=== PATIENT | male | born 1970 | race Caucasian/White ===

== ENCOUNTER 2020-05-20 11:36 | Emergency (ER) | payer OTHER, SELFPAY ==
[2020-05-20 12:31] VITALS: BP 119/73; PULSE 93; RESP 14; TEMP 37.2; O2SAT 98
--- NOTE | 2020-05-20 12:50 | ED.SKABFB ---
HPI - Skin/Abscess/Foreign Bdy General Chief complaint: Skin/Abscess/Foreign Body Stated complaint: infected axilla Time Seen by Provider: 05/20/20 12:01 History of Present Illness HPI narrative: Painful swelling in the right axilla for several days. Saw PCP yesterday and was given a shot of ceftriaxone and started on bactrim. Worse today. No fever, nausea, weakness. Related Data Home Medications Medication Instructions Recorded Confirmed sulfamethoxazole-trimethoprim 1 tablet PO Q12H 05/20/20 [Bactrim DS] Allergies Allergy/AdvReac Type Severity Reaction Status Date / Time No Known Allergies Allergy Verified 05/20/20 12:35 Review of Systems Review of Systems: All systems reviewed & are unremarkable except as noted in HPI and below Constitutional: Constitutional: Denies fever(s) and Denies weakness Cardiovascular: Cardiovascular: Denies chest pain Respiratory: Respiratory: Denies dyspnea Gastrointestinal: Gastrointestinal: Denies nausea PMFSH Social History Social History Gender identity (if verbalized by the patient): Male Exam Const: General: healthy appearing, no acute distress and alert Orientation/consciousness: patient oriented x3 HENMT: Head: normal to inspection Neck: Neck: normal visual inspection and no lymphadenopathy Chest: Chest palpation & inspection: tenderness pectoral muscle on the right Resp: Effort & Inspection: normal respiratory effort Auscultation: clear to auscultation bilaterally, no rales, no rhonchi and no wheezes Cardio: Jugular venous distension: no JVD Rate: regular rate Rhythm: regular rhythm Heart sounds: no murmurs GI: Inspection: non-distended GI Palp: Yes Soft to palpation and No Tenderness to palpation present (GI) Skin: Other: Large right axillary abscess extending into right pectoral region Neuro: General: patient oriented x3 and moves all extremities Speech: normal speech Extrem: General: no edema Psych: Appearance: well kempt Affect: normal affect Course Vital Signs Vital signs: Vital Signs Temperature 37.2 C 05/20/20 12:31 Pulse Rate 93 05/20/20 12:31 Respiratory Rate 14 05/20/20 12:31 Blood Pressure 119/73 05/20/20 12:31 Pulse Oximetry 98 05/20/20 12:31 Temperature 36.6 C 08/28/20 14:21 Pulse Rate 81 05/20/20 14:21 Respiratory Rate 20 05/20/20 14:21 Blood Pressure 119/75 05/20/20 14:21 Pulse Oximetry 97 05/20/20 14:21 Procedures Abscess I/D other: Side (if applicable): right (axilla) Local Anesthetic: lidocaine 1% and with epi Amount of anesthesia used (mL): 30 Technique: incised with #11 blade Amount of fluid expressed (mL): 20 Irrigation: Yes Packing used?: iodoform I&D Results: Pus Complications: pain MDM - Skin/Abscess/Foreign Bdy MDM Narrative Medical decision making narrative: Abscess drained and packed. Will have him continue bactrim Medical Records Attestation: I reviewed the patient's medical records. Discharge Plan Discharge Clinical Impression: Abscess of axilla, right Patient Disposition: Home, Self-Care Condition: Stable Instructions: Antibiotic Form, Abscess (ED) Additional Instructions: Continue antibiotics Prescriptions: New sulfamethoxazole-trimethoprim [Bactrim DS] 800-160 mg tablet 1 tablet PO Q12H Qty: 20 RF: 0 No Action sulfamethoxazole-trimethoprim [Bactrim DS] 800-160 mg Tablet 1 tablet PO Q12H RF: 0 Follow-up/Referrals: PHYSICIAN,SENIOR ACCOUNTING MANAGER [Primary Care Provider] - Discharge Date/Time: 05/20/20 14:23
[2020-05-20] MEDS: KETOROLAC (*BKC) 60 MG/2 ML VIAL IM (13:00)
--- NOTE | 2020-05-20 14:03 | PC.NURSE ---
Patient pharmacy was called to verify which antibiotic the patient has been prescribed. This was updated under home medications. Additionally his PMD office was contacted and reports that he was given 500mg rocephin IM while in the office on 05/19/2020. EDP updated.
[2020-05-20 14:21] VITALS: BP 119/75; PULSE 81; RESP 20; TEMP 36.6; O2SAT 97
== END 2020-05-20 14:23 | disposition home or self-care (01) ==
PROVIDERS: Emergency Provider Emergency Medicine
DX: L02.411 Cutaneous abscess of right axilla (principal)
CPT/HCPCS: 10061; 96372; 99283; J1885

== ENCOUNTER 2022-05-30 15:14 | Emergency (ER) | payer BC, SELFPAY ==
--- NOTE | ~2022-05-30 | CT_ITS ---
EXAMINATION: CT abdomen pelvis w con DATE: 05/30/2022 18:15 INDICATION: GI bleed TECHNIQUE: Computed tomography (CT) of the abdomen and pelvis was performed with 100 mL Omnipaque-350 intravenous contrast. Automated exposure control and iterative reconstruction technique were employe d. The dose-length product was 1698.22 mGy-cm. COMPARISON: None. FINDINGS: Lower thorax: Mild coronary artery calcification. Liver: Mildly enlarged. Fatty infiltrated Biliary/Gallbladder: Gallbladder is normal. No bile duct dilation. Pancreas: No mass or duct dilation. Spleen: Normal. Adrenals:No mass. Kidneys: Left upper pole hypodensity, too small to characterize but most likely represents a cyst. Pu nctate nonobstructing right upper pole calculi. No suspicious mass. No hydronephrosis. GI tract: No small or large bowel dilation. Normal appendix. Mesentery/Peritoneum: No ascites, mass, or free air. Retroperitoneum: No mass. Pelvis: Bladder wall thickening likely secondary to chronic outlet compromise from prostatomegaly. Soft Tissues: Small fat-containing uncomplicated umbilical hernia. Bones: No acute osseous finding. IMPRESSION: Mild hepatosplenomegaly. Steatosis. No acute abdominopelvic process detected. Reviewed, dictated and finalized at location K.
[2022-05-30 15:20] VITALS: BP 142/89; PULSE 98; RESP 16; TEMP 36.6; O2SAT 99
[2022-05-30 15:34] LABS: Basophils Absolute Auto 0.1 K/mm3 (0.0-0.1); Basophils Percent Auto 0.5 % (0.2-1.2); Eosinophils Absolute Auto 0.3 K/mm3 (0-0.3); Eosinophils Percent Auto 1.9 % (0-4.4); Hematocrit 45.4 % (42.0-52.0); Hemoglobin 15.6 g/dL (14.0-18.0); Immature Granulocyte Absolute 0.03 K/mm3 (0.00-0.031); Immature Granulocyte Percent A 0.2 % (0-0.5); Lymphocytes Absolute Auto 4.88 K/mm3 (0.9-3.2); Lymphocytes Percent Auto 37.4 % (18.3-44.2); Mean Corpuscular HGB Conc 34.4 g/dl (32-36); Mean Corpuscular Hemoglobin 30.2 pg (26-34); Mean Platelet Volume 9.4 fl (7.4-10.4); Monocytes Absolute Auto 1.5 K/mm3 (0.1-0.6); Monocytes Percent Auto 11.5 % (2.6-8.5); Neutrophils Absolute Auto 6.3 K/mm3 (1.3-6.7); Neutrophils Percent Auto 48.5 % (45.5-73.1); Platelet Count Result 237 k/mm3 (150-375); Red Blood Count 5.16 M/mm3 (4.6-6.20); Red Cell Distribution Width 13.2 % (11.5-14.5); White Blood Count 13.1 K/mm3 (4.5-10.0)
[2022-05-30 15:44] LABS: Prothrombin Time 13.1 Seconds (11.1-14.7)
[2022-05-30 15:45] LABS: Partial Thromboplastin Time 28.6 SECONDS (22.3-36.8)
[2022-05-30 15:58] LABS: Alanine Aminotransferase 33 U/L (6-50); Albumin Level 4.9 g/dL (3.5-5.1); Alkaline Phosphatase 66 U/L (38-126); Anion Gap 14 mmol/L (8-16); Aspartate Amino Transferase 35 U/L (17-59); Bilirubin,Total 0.8 mg/dL (0.2-1.3); Blood Urea Nitrogen 13 mg/dL (9-20); Calcium 9.3 mg/dL (8.4-10.2); Carbon Dioxide 24 mmol/L (22-30); Chloride 103 mmol/L (98-107); Estimated CRCL calculation 0 ml/min; Estimated Glomerular Filt Rate > 60; Glucose 109 mg/dL (65-110); Potassium 3.8 mmol/L (3.4-5.0); Sodium 141 mmol/L (137-145)
--- NOTE | 2022-05-30 17:56 | ED.GIBLEED ---
HPI - GI Bleed General Chief complaint: GI Bleed <CARROL Bryant Last Filed: 05/30/22 18:44> Stated complaint: GI bleed?? <CARROL Bryant Last Filed: 05/30/22 18:44> Time Seen by Provider: 05/30/22 17:13 <CARROL Bryant Last Filed: 05/30/22 18:44> Source: patient <CARROL Bryant Last Filed: 05/30/22 18:44> Mode of arrival: ambulatory <CARROL Bryant Last Filed: 05/30/22 18:44> Limitations: no limitations <CARROL Bryant Last Filed: 05/30/22 18:44> History of Present Illness HPI Narrative: This is a 51-year-old male that presents to the emergency department for GI bleed. Reports he felt something optical glass wet inspector his underwear and noted blood. Does report he has noted blood on the tissue when he has wiped in the past. He has never been evaluated for this. He has not had a colonoscopy. Denies fevers, abdominal pain, or diarrhea. <CARROL Bryant Last Filed: 05/30/22 18:44> Related Data Home medications: Home Medications Medication Instructions Recorded Confirmed sulfamethoxazole 800 1 tablet PO Q12H 05/20/20 mg-trimethoprim 160 mg tablet (Bactrim DS) <CARROL Bryant Last Filed: 05/30/22 18:44> Allergies/Adverse reactions: Allergies Allergy/AdvReac Type Severity Reaction Status Date / Time No Known Allergies Allergy Verified 05/30/22 15:35 <CARROL Bryant Last Filed: 05/30/22 18:44> Review of Systems Review of Systems: CONSTITUTIONAL: Denies fever GASTROINTESTINAL: Reports abdominal pain. Denies nausea, vomiting, or diarrhea. <CARROL Bryant Last Filed: 05/30/22 18:44> All systems reviewed & are unremarkable except as noted in HPI and below <CARROL Bryant Last Filed: 05/30/22 18:44> PMFSH Past Medical History Medical History: Medical History (Updated 05/30/22 @ 18:44 by Shonna Parikh PA-C) No active medical problems <Shonna Parikh PA-C - Last Filed: 05/30/22 18:44> Social History Social History: Social History (Updated 05/30/22 @ 17:58 by Shonna Parikh PA-C) Smoking status: Never smoker Gender identity (if verbalized by the patient): Male <Shonna Parikh PA-C - Last Filed: 05/30/22 18:44> Exam Narrative: GENERAL: Well-appearing, well-nourished, and in no acute distress. HEAD: Normocephalic, atraumatic. EYES: EOMI. CHEST: Clear to auscultation. No respiratory distress. No wheezes rales or rhonchi HEART: Regular rate and rhythm. No murmur heard. Normal peripheral pulses. ABDOMEN: Soft, nontender, nondistended, normal active bowel sounds. EXTREMITIES: Normal range of motion. No edema. SKIN: Warm, dry, no rash. NEURO: No focal deficits. Alert and oriented x3. PSYCH: Normal mood and affect RECTAL: No obvious hemorrhoids or fissures. No active bleeding. Hemoccult negative <Shonna Parikh PA-C - Last Filed: 05/30/22 18:44> Course GRANULAR OPERATOR/PA Physician Supervision For this patient encounter, I reviewed the GRANULAR OPERATOR or PA documentation, treatment plan, and medical decision making. I was available for consultation as needed. <Odalis Lopez MD - Last Filed: 05/30/22 23:54> Vital Signs Vital signs: Vital Signs Temperature 97.8 F 05/30/22 15:20 Pulse Rate 98 05/30/22 15:20 Respiratory Rate 16 05/30/22 15:20 Blood Pressure 142/89 H 05/30/22 15:20 Pulse Oximetry 99 05/30/22 15:20 Oxygen Delivery Room Air 05/30/22 15:20 Temperature 97.8 F 05/30/22 15:20 Pulse Rate 75 05/30/22 18:54 Respiratory Rate 16 05/30/22 18:54 Blood Pressure 152/85 H 05/30/22 18:54 Pulse Oximetry 100 05/30/22 18:54 Oxygen Delivery Room Air 05/30/22 15:20 <Shonna Parikh PA-C - Last Filed: 05/30/22 18:44> Vital Signs Temperature 97.8 F 05/30/22 15:20 Pulse Rate 98 05/30/22 15:20 Respiratory Rate 16 05/30/22 15:20 Blood Pressure 142/89 H 05/30/22 15:20 Pulse Oximetry
--- NOTE | 2022-05-30 17:58 | PC.NURSE ---
rectal exam performed by provider with publications writer assistance
[2022-05-30 18:54] VITALS: BP 152/85; PULSE 75; RESP 16; O2SAT 100
== END 2022-05-30 18:54 | disposition home or self-care (01) ==
PROVIDERS: Emergency Medicine; Emergency Provider Emergency Medicine
DX: K62.5 Hemorrhage of anus and rectum (principal); R16.2 Hepatomegaly with splenomegaly, not elsewhere classified
CPT/HCPCS: 36415; 74177; 80053; 85025; 85610; 85730; 86850; 86900; 86901; 99284; Q9967